=== PATIENT | female | born 1970 | race Caucasian/White ===

== ENCOUNTER → 2016-11-28 | Day surgery (SDC) | payer MEDICAID ==
[~2016-11-28] MED LIST: ADVAIR 2501 DISK W/D PO; ALBUTEROL17 GM INH; BACLOFEN20 M1 PO; BACTRIM 400-801 EACH PO; BEVESPI AEROS10.7 GM PO; BUSPIRONE HCL10 M2 PO; IMODIUM2 MG PO; MOBIC PO; OMEPRAZOLE20 M1 PO; PHENERGAN PO; PYRIDIUM PO; TRAMADOL HCL50 M2 PO; URIBEL CAPSULE1 EAC1 PO; VALACYCLOVIR1000 MG PO; VOLTAREN75 MG PO; ZANTAC PO
--- NOTE | ~2016-11-28 | OR ---
Unit #: [id number] #: [id number] Patient: ULI MONTES [id number] [address] [address] [id number] O MR#: [id number] NAME: ULI MONTES. ROOM: Date of Procedure: 11/28/2016 Admission Date: 11/28/2016 Surgeon: Kris Scott M.D. : 1970 Attending Physician: Chetan Scott Primary Care Physician: Jewel Krause M.D. [facility]ENTER OPERATIVE NOTE PROCEDURE PERFORMED Lumbar epidural steroid injection under x-ray guided needle placement with provider administered conscious sedation. PREOPERATIVE DIAGNOSES 1. Acute lumbar radiculitis. 2. Spinal stenosis, lumbosacral spine. 3. Herniated disk, L5-S1. 4. Herniated disk, L4-L5. 5. Degenerative joint disease, lumbosacral spine. 6. Degenerative disk disease, lumbosacral spine. 7. Facet arthrosis, lumbosacral spine. INDICATIONS FOR PROCEDURE The patient presents today with a 2-year history of crescendo pattern lumbar radicular pain, which has failed to respond to conservative measures which include medical management as well as physical therapy. She is in possession of MRI report, which shows diffuse disease, most notably worse at L5-S1 with secondary relatively severe disease at L4-L5. Following discussing risks and benefits of proceeding today with an L5-S1 injection, the patient agreed this would be the appropriate course of action. DESCRIPTION OF PROCEDURE She was then taken to the operating room, where she was prepped and draped in sterile manner. Standard monitors were applied. She was sedated with 2 mg of IV Versed initially and required an additional 2 mg of IV Versed throughout the duration of the procedure. Lumbar epidural space accessed at the L5-S1 level using loss of resistance technique and x-ray guidance. Needle placement was confirmed with injection of 2 mL of Omnipaque. There was good superior and inferior flow at this L5-S1 level placement. Following successful needle placement confirmation which required an x-ray time of 4 seconds, the patient received an injectate containing 2 mL normal saline, 2 mL of 0.25% bupivacaine, and 80 mg of methylprednisolone. She tolerated this procedure well. She was discharged home with followup instructions, which include return to this clinic on 12/14/2016. Dictated by... Kris Scott M.D. MILTON/deanna Unit #: [id number] #: [id number] Patient: ULI MONTES TD: 11/28/2016 14:35 JOB #: [id number] [facility] OPERATIVE NOTE Page 1 of 1 X Chetan Scott MD X PROCEDURE OPERATIVE NOTE
== END | disposition home or self-care (01) ==
LOC: CCSC 12:46
DX: M51.17 Intervertebral disc disorders with radiculopathy, lumbosacral region (principal); M51.16 Intervertebral disc disorders with radiculopathy, lumbar region; M48.07 Spinal stenosis, lumbosacral region; M47.27 Other spondylosis with radiculopathy, lumbosacral region; J44.9 Chronic obstructive pulmonary disease, unspecified; K21.9 Gastro-esophageal reflux disease without esophagitis; F17.210 Nicotine dependence, cigarettes, uncomplicated; Z87.440 Personal history of urinary (tract) infections; Z88.1 Allergy status to other antibiotic agents; Z79.891 Long term (current) use of opiate analgesic; Z79.2 Long term (current) use of antibiotics; Z79.899 Other long term (current) drug therapy; Z90.711 Acquired absence of uterus with remaining cervical stump; Z90.49 Acquired absence of other specified parts of digestive tract; Z98.890 Other specified postprocedural states
CPT/HCPCS: J1040; J2250

== ENCOUNTER → 2016-12-14 | Day surgery (SDC) | payer MEDICAID ==
--- NOTE | ~2016-12-14 | OR ---
Unit #: [id number] #: [id number] Patient: ULI MONTES [id number] [address] [address] [id number] O MR#: [id number] NAME: ULI MONTES. ROOM: Date of Procedure: 12/14/2016 Admission Date: 12/14/2016 Surgeon: Kris Scott M.D. : 1970 Attending Physician: Chetan Scott Primary Care Physician: Jewel Krause M.D. SUR[facility] CENTER OPERATIVE NOTE PROCEDURE PERFORMED Lumbar epidural steroid injection under x-ray guided needle placement with provider administered conscious sedation. PREOPERATIVE DIAGNOSES 1. Acute lumbar radiculitis. 2. Spinal stenosis, lumbosacral spine. 3. Herniated disk, L4-L5. 4. Herniated disk, L5-S1. 5. Degenerative joint disease, lumbosacral spine. 6. Degenerative disk disease, lumbosacral spine. INDICATIONS FOR PROCEDURE The patient presents today status post one previous lumbar approach epidural steroid injection for an acute radiculitis, which failed to respond to conservative therapy. The patient states she got good results with initial injection; however, it was not complete nor was it completely long lasting as she did have some remaining symptoms and some return of symptoms to the point that she was not satisfied with the amount of relief that she got. After discussing risks and benefits of proceeding today with a lumbar approach epidural steroid injection utilizing a dual needle L5-S1, L4-L5 approach, the patient now agreed this would be the appropriate course of action. We also discussed briefly a re-referral or a referral to this clinic from her primary care provider for her cervical radicular symptoms, which appeared to be recurring. DESCRIPTION OF PROCEDURE Following these discussions, the patient was taken to the operating room where she was prepped and draped in a sterile manner. Standard monitors were applied. She was sedated with 2 mg of IV Versed initially and required an additional 4 mg of IV Versed and 2 mL of IV fentanyl throughout the duration of procedure. Lumbar epidural space accessed at the L5-S1 and L4-L5 levels using loss of resistance technique and x-ray guidance. Needle placement was confirmed with injection of 2 mL of Omnipaque at each level. At the L5-S1 level, the primary flow of the dye was in the inferior direction. At the L4-L5 level, there was good superior and inferior flow, this was desired outcomes. Following successful needle placement confirmation, which required 9 seconds of x-ray time, the patient received an injectate containing 4 mL of normal saline and 40 mg of methylprednisolone at each level for a total injectate volume today of 8 mL of normal saline and 80 mg of methylprednisolone. She tolerated this procedure well and was discharged home with followup instructions, which include an offer to return to this clinic as early as Unit #: [id number] #: [id number] Patient: ULI MONTES 03/29/2019 if we could be of further service to her. Dictated by... Trent Maciel/deanna TD: 12/14/2016 15:06 JOB #: [id number] [facility] OPERATIVE NOTE Page 1 of 1 X Chetan Scott MD X PROCEDURE OPERATIVE NOTE
== END | disposition home or self-care (01) ==
LOC: CCSC 13:49
DX: M51.17 Intervertebral disc disorders with radiculopathy, lumbosacral region (principal); M47.27 Other spondylosis with radiculopathy, lumbosacral region; M48.07 Spinal stenosis, lumbosacral region; J44.9 Chronic obstructive pulmonary disease, unspecified; K21.9 Gastro-esophageal reflux disease without esophagitis; Z87.440 Personal history of urinary (tract) infections; Z85.42 Personal history of malignant neoplasm of other parts of uterus; Z90.49 Acquired absence of other specified parts of digestive tract; Z98.890 Other specified postprocedural states; Z90.710 Acquired absence of both cervix and uterus; Z79.899 Other long term (current) drug therapy
CPT/HCPCS: J1040; J2250; J3010